=== PATIENT | female | born 1960 | race Caucasian/White ===

== ENCOUNTER → 2020-04-26 | Outpatient (CLI) | payer BC ==
[~2020-04-26] MED LIST: ASPI325T8 PO; HYDR-2761 PO; IBUP-1060 PO; METO25TA4 PO; MULT-245 PO; OMEP20CA16 PO; OXYC1TAB19 PO; PARO20TA99 PO; TRIA1TAB3 PO
== END | disposition home or self-care (01) ==
LOC: LAB 10:50
PROVIDERS: ATTEND Orthopaedic Surgery
DX: Z01.818 Encounter for other preprocedural examination (principal); Z11.59 Encounter for screening for other viral diseases; S62.102A Fracture of unspecified carpal bone, left wrist, initial encounter for closed fracture; S62.101A Fracture of unspecified carpal bone, right wrist, initial encounter for closed fracture; X58.XXXA Exposure to other specified factors, initial encounter; Y93.89 Activity, other specified; Y92.89 Other specified places as the place of occurrence of the external cause; Y99.8 Other external cause status
CPT/HCPCS: C9803; U0003; 36415

== ENCOUNTER 2020-04-27 10:04 | Day surgery (SDC) | payer BC ==
[~2020-04-27] VITALS: Ht 157.5 cm; Wt 87.5 kg
[~2020-04-27 10:04] MED LIST changes: -OXYC1TAB19 PO
[2020-04-27] MEDS ORDERED: IV RINGERS,LACTATED 1000ML 1,000 ML IV SCH ×2 (11:15→15:59)
[2020-04-27 11:23] LABS: BASO % 1 % (0-3); EOS # 0.2 x10^3/uL (0.0-0.7); EOS % 3 % (0-3); HEMATOCRIT 40.4 % (36.0-47.0); HEMOGLOBIN 13.9 g/dL (12.0-15.5); LYMPH # 1.2 x10^3/uL (1.0-4.8); LYMPH % 16 % (24-48); MEAN CORPUSCULAR HEMOGLOBIN 31 pg (25-35); MEAN CORPUSCULAR HGB CONC 34 g/dL (31-37); MEAN CORPUSCULAR VOLUME 91 fL (79-100); MONO # 0.5 x10^3/uL (0.0-1.1); MONO % 7 % (0-9); NEUT # 5.8 x10^3/uL (1.8-7.7); NEUT % 75 % (31-73); PLATELET COUNT 270 x10^3/uL (140-400); RED BLOOD COUNT 4.46 x10^6/uL (3.50-5.40); RED CELL DISTRIBUTION WIDTH 13.6 % (11.5-14.5); WHITE BLOOD COUNT 7.8 x10^3/uL (4.0-11.0)
--- NOTE | 2020-04-27 11:30 | EKG ---
[facility] [address] [place] [id number] Test Date: 2020-04-27 Test Time: 11:27:58 Pat Name: BARNEY RAYMOND Department: Room: Gender: F [employer]: : 1960 Requested By: PA BROWN Order Number: [id number] Reading MD: Omar Jonas Measurements Intervals [place] Rate: 56 P: 43 [place]: 212 QRS: 27 QRSD: 92 T: 2 QT: 506 QTc: 491 Interpretive Statements SINUS RHYTHM PROLONGED QT Electronically Signed On 04-30-2020 16:10:30 CDT by Omar Jonas
[2020-04-27 11:36] LABS: CALCIUM 8.9 mg/dL (8.5-10.1); CREATININE 0.9 mg/dL (0.6-1.0); GFR 64.1; POTASSIUM 4.1 mmol/L (3.5-5.1)
[2020-04-27] MEDS ORDERED: fentaNYL PF VIAL 100 MCG/2 ML VIAL ONE ×3 (12:34→15:55)
[2020-04-27] MEDS ORDERED: MIDAZOLAM HCL/PF 2 MG/2 ML VIAL. ONE (12:35)
[2020-04-27] MEDS ORDERED: ONDANSETRON PF 4 MG/2 ML VIAL. ONE (12:35)
[2020-04-27] MEDS ORDERED: DEXAMETHASONE SOD PHOS 4 MG/ML VIAL ONE (12:35)
[2020-04-27] MEDS ORDERED: PROPOFOL 10 MG/ML (20ML) VIAL. IV ONE (12:35)
[2020-04-27] MEDS ORDERED: LIDOCAINE 2% PF 5 ML VIAL. ONE (12:35)
[2020-04-27] MEDS ORDERED: ceFAZolin 2GM PREMIX 2 GM/50 ML BAG IV ONE (13:00)
[2020-04-27] MEDS ORDERED: ROPIVacaine 0.5% PF 20 ML VIAL. ONE (13:26)
[2020-04-27] MEDS ORDERED: BUPIVACAINE MPF 0.5% 30 ML VIAL. ONE (13:26)
[2020-04-27] MEDS ORDERED: OXYC1TAB19 PO (13:40)
--- NOTE | 2020-04-27 13:41 | DISCH ---
DISCHARGE INSTRUCTIONS Condition on Discharge Condition on Discharge: Stable Activity After Discharge Activity Instructions for Disc: Other, see below (Fine motor use of both hands permitted) Weight Bearing Status after Di: Non weight bearing Diet after Discharge Diet after Discharge: Regular Wound Incision Care Wound/Incision Care: Ice to area for comfort, Keep wound elevated, Do not change dressing Contacting the after DC Call your doctor for: Concerns you may have Follow-Up Follow up with: Dr. Berger 1 week PA BERGER MD Apr 27, 2020 13:41
[2020-04-27] MEDS ORDERED: GLYCOPYRROLATE 1 MG/5 ML VIAL. ONE (13:54)
[2020-04-27] MEDS ORDERED: ePHEDrine PF IN SALINE 50 MG/10 ML SYRINGE. IV ONE (13:55)
[2020-04-27] MEDS ORDERED: ONDANSETRON PF 4 MG/2 ML VIAL. IV PRN (16:00)
[2020-04-27] MEDS ORDERED: MORPHINE SULFATE 2 MG/ML VIAL. IV PRN (16:00)
[2020-04-27] MEDS ORDERED: HYDROmorphone 2 MG/ML VIAL IV PRN (16:00)
[2020-04-27] MEDS ORDERED: PROCHLORPERAZINE 10 MG/2 ML VIAL. IV PRN (16:00)
--- NOTE | 2020-04-27 16:01 | PDOC4 ---
Operative Note Operative Note Date of surgery: 04/27/2020 Preoperative diagnosis: Displaced intra-articular bilateral distal radius fractures Postoperative diagnosis same with 2 part intra-articular involvement on both Operative procedure: ORIF intra-articular 2 part left distal radius fracture, ORIF intra-articular 2 part right distal radius fracture Surgeon: Ab Fork Operator: Amarjit Singh Anesthesia: General Estimated blood loss: 15 cc Complications: None Operative indications: Please see my orthopedic operative note of yesterday for detailed operative indications and note that we had discussed the possible operative complications of infection nerve or blood vessel damage medical or other anesthetic complications and even under the best of circumstances some stiffness soreness in the joint and the rationale is for good alignment improving mechanical advantage and mitigating any joint malalignment that would tend to contribute to premature arthritis All her questions were answered she wishes to proceed with surgical evaluation and treatment. Operative text: Patient was identified procedure verified patient placed in the supine position on the operating table. After adequate amounts of general anesthesia were administered the right upper extremity was prepped and draped in standard sterile fashion with an upper arm tourniquet. After timeout was performed patient procedure identified and verified the right upper extremity was exsanguinated by Esmarch bandage tourniquet inflated to 250 mmHg and a longitudinal incision was made over the flexor carpi radialis and a volar Ranjeet approach carried out to the distal radius subperiosteal dissection was carried out and reduction carried out under fluoroscopic guidance and a short narrow Primitivo DVR distal radial locking plate was aligned properly and a nonlocking shaft screw placed in the sliding hole to allow minor adjustments. Distal locking screws were initially placed under fluoroscopic guidance individually and verified to be in good position not violating the joint space. Proximal row locking screws and nonlocking shaft screws were placed and all hardware placement was checked under multiple fluoroscopic views and anatomic alignment was noted at the joint space with confucianist of volar tilt. Thorough irrigation carried out normal saline solution subcutaneous closure with buried Vicryl sutures subcuticular Monocryl Mastisol Steri-Strips were applied. Sterile dressings were applied but the splint was deferred and tourniquet deflated. Attention was then turned to the left upper extremity which had previously been prepped and draped in standard sterile fashion with a forearm tourniquet to accommodate an IV in the antecubital fossa, patient procedure was again identified and verified the left forearm was exsanguinated by Esmarch bandage tourniquet inflated to 250 mmHg and a longitudinal incision was made over the flexor carpi radialis and a volar Ranjeet approach carried out to the distal radius subperiosteal dissection was carried out and reduction carried out under fluoroscopic guidance and a standard length narrow Primitivo DVR distal radial locking plate was aligned properly and a nonlocking shaft screw placed in the sliding hole to allow minor adjustments. Distal locking screws were initially placed under fluoroscopic guidance individually and verified to be in good position not violating the joint space. Proximal row locking screws were placed along with a single multidirectional screw along the distal radial aspect and nonlocking shaft screws were placed and all hardware placement was checked under multiple fluoroscopic views and anatomic alignment was noted at the joint space with confucianist of volar tilt. Thorough irrigation carried out normal saline solution subcutaneous closure with buried Vicryl sutures subcuticular Monocryl Mastisol Steri-Strips and a well-padded volar splints were placed bilaterally, the fingers were noted to be warm pink following deflation of tourniquet on both sides, patient was returned to recovery room stable condition having tolerated procedure well. PA BROWN MD Apr 27, 2020 16:01
[2020-04-27] MEDS ORDERED: MORPHINE SULFATE 2 MG/ML VIAL. ONE (16:10)
[2020-04-27] MEDS ORDERED: hydrALAZINE 20 MG/ML VIAL. ONE (16:15)
[2020-04-27] MEDS ORDERED: fentaNYL PF VIAL 100 MCG/2 ML VIAL IVP PRN ×3 (16:15)
[2020-04-27] MEDS ORDERED: hydrALAZINE 20 MG/ML VIAL. IVP PRN (16:30)
[2020-04-27 16:35] VITALS: BP 141/78
[2020-04-27] MEDS ORDERED: oxyCODONE/APAP 7.5/325 1 TAB TABLET PO PRN (16:45)
== END 2020-04-27 17:20 | disposition home or self-care (01) ==
LOC: SURG 10:04
PROVIDERS: ATTEND Orthopaedic Surgery
DX: S52.571A Other intraarticular fracture of lower end of right radius, initial encounter for closed fracture (principal); S52.572A Other intraarticular fracture of lower end of left radius, initial encounter for closed fracture; X58.XXXA Exposure to other specified factors, initial encounter; Y93.89 Activity, other specified; Y92.89 Other specified places as the place of occurrence of the external cause; Y99.8 Other external cause status
CPT/HCPCS: 25608; 36415; 76000; 80048; 85025; 93005; A7015; C1713; J0360; J0696; J1100; J2250; J2270; J2405; J2704; J2795; J3010; J3490

== ENCOUNTER → 2022-04-03 | Outpatient (CLI) | payer BC ==
[~2022-04-03] MED LIST changes: +OXYC1TAB19 PO
--- NOTE | 2022-04-04 08:56 | KCIC ---
EXAM: MRI RIGHT KNEE DATE: 04/03/2022 10:10 AM CLINICAL INDICATION: Reason: RIGHT KNEE PAIN / Spl. Instructions: / History: Rt knee pain x 3 weeks. [place] a pop climbing stairs. Pain is anteriolateral. COMPARISON: None. TECHNIQUE: Multiplanar, multisequence MRI of the RIGHT knee was performed without contrast. FINDINGS: ACL and PCL are intact. Increased signal about the MCL likely reactive change. Fibular collateral ligament, biceps femoris an d IT band are intact. Popliteus is intact, normal in signal and morphology. Extensor mechanism is intact. Neutral patellar tracking. Medial meniscus: Near full-thickness radial tear is seen at the posterior horn-root junction medial m eniscus. Mild extrusion of the body segment. Lateral meniscus: Intact Chondral thinning medial compartment with regions of full-thickness cartilage defects. Mild subchondr al edema. Mild edema about the pes anserine tendons. Moderate right knee joint effusion. Trace Mejia's cyst. No acute fracture or osteonecrosis. IMPRESSION: 1. Near full-thickness radial tear at the posterior horn-root junction medial meniscus. Mild extrusi on of the body segment 2. Right knee joint osteoarthritis, most prominent in the medial compartment with with chondromalaci a, full thickness defects and subchondral edema. 3. Moderate right knee joint effusion. 4. Edema along the pes anserine tendons, pes anserine bursitis. Electronically signed by: Levi Brady MD (04/04/2022 8:54 AM) [id number]
== END ==
LOC: KCIC MRI 09:52
PROVIDERS: ATTEND Physician Assistant Medical
DX: S83.241A Other tear of medial meniscus, current injury, right knee, initial encounter (principal); M17.11 Unilateral primary osteoarthritis, right knee; M25.461 Effusion, right knee; M94.261 Chondromalacia, right knee; M24.159 Other articular cartilage disorders, unspecified hip; X58.XXXA Exposure to other specified factors, initial encounter; Y93.89 Activity, other specified; Y92.89 Other specified places as the place of occurrence of the external cause; Y99.8 Other external cause status
CPT/HCPCS: 73721